=== PATIENT | female | born 2000 | race Caucasian/White ===

== ENCOUNTER 2021-01-27 00:19 | Emergency (ER) | payer OTHER, SELFPAY ==
[2021-01-27 00:20] VITALS: PULSE 75; RESP 18; TEMP 36.4; O2SAT 100; BMI 27.4
--- NOTE | 2021-01-27 00:41 | EX.ED.UPPERE ---
HPI History of Present Illness Chief Complaint: Bite Informant: patient Occured/Mechanism Mechanism/Context: Yes other see comment below Comment: dog bite Onset/Context/Timing Onset: Today (JPTA) Context: Sudden Onset Timing: Continuous Quality of Pain: - (sore) Location: R thumb Current Severity: Mild Maximum Severity: Moderate Worsened by: movement, palpation Relieved by: remaining still Associated Symptoms Associated Symptoms: Negative for Parasthesia, Weakness and Loss of Funtion Narrative Narrative: Patient was watching a friend's dog, dog was going to bed in its crate and has not been ill, was trying to get out, she used her hand to gently guide him back in and may have felt cornered, bit at her, causing injury to her thumb as a result. [id number] patient. Tetanus Immunization: 5-10 years PFSH PFSH no medical history Home Medications amoxicillin-pot clavulanate [Augmentin] 1 tab PO BID #10 tab 01/27/21 [Rx Last Taken Unknown] desogestrel-ethinyl estradiol [Apri] 1 tab PO DAILY 01/27/21 [History Last Taken Unknown] Allergy/AdvReac Type Severity Reaction Status Date / Time No Known Allergies Allergy Verified 01/27/21 00:21 Social History Smoking Status: Never smoker ROS ROS ED Constitutional Constitutional ED: Denies chills or fever(s) Musculoskeletal Musculoskeletal: Reports extremity pain; Denies neck pain Integumentary Reports as per HPI and wounds; Denies rash Neurologic Neurologic: Denies paresthesias or weakness EXAM Physical Exam Const Vital Signs: 01/27/21 00:20 Temperature 97.5 F L Temperature Source Temporal Pulse Rate 75 Respiratory Rate 18 Pulse Ox 100 Positive well nourished and well developed General Appearance ED: well developed and NAD Neck full ROM and supple Back/Spine normal ROM and normal to inspection Extremity Extremity Narrative: Right thumb injury: Tender distal phalanx. Limited range of motion at the IPJ due to pain and swelling but able to flex and extend. No injury proximal to the IPJ or other digits. No subungual hematoma but there is a laceration to the nail itself at the proximal aspect, it does not go all the way into the nailbed or distally through the nail, but it is contiguous with the laceration that is longitudinal along the center of the dorsum of the thumb just proximal to the nail. Neuro oriented x3, no focal motor deficits and no sensory deficits noted Sensorium / Orientation: alert Psych mental status grossly normal and thought process normal Skin Skin Narrative: Partial-thickness clean appearing irregular laceration 3 cm dorsum of the right thumb distal phalanx in the center, from about the IPJ to the nail including the cuticle. It is partial-thickness and the actual root/base of the nail was not visible through the skin, is intact within the cuticle/root, and adherent to the bed without any apparent issue. No active bleeding from the nail injury. Rashes: no rashes MDM MDM MDM Narrative Medical decision making narrative: X-rays on my interpretation 3 views right thumb are negative for any foreign body or fracture/bony involvement. Laceration was repaired after locally anesthetizing, there is a traumatic defect to the nail. There is very minor bleeding from it. I cleaned it up and the bleeding is not active. There does not appear to be a bed injury/laceration. I do not think there will be benefits of removing the nail at this time. As I discussed with the patient, it is possible that she damaged the root/cuticle and if so she may have issues regrowing the nail, however I think it is more likely that the nail will continue to grow normally and she will have a nail defect that will grow out over the next couple of months. After looking at it carefully, I do not think I will benefit her by removing the nail as there does not appear to be a laceration on the bed to repair, and in fact it would increase the chances that the nail would not regrow. I discussed all this with her and she is in agreement with the treatment that we performed. I will have her follow-up with Dr. Woodruff for reevaluation and suture removal. She is put on Augmentin for 5 days, infection prophylaxis, and given the first dose here along with ibuprofen for pain. Procedures Lacerations R thumb: Length: 3 cm Depth: Skin Shape: irreg Prep: Sterile Conditions and Chlorhexadine Laceration repair: Lidocaine (1%, 2cc), Lidocaine with epi (topically) and Local Irrigated (ml): 50 Number of Sutures/[place]: 4 Suture Information: Ethilon, Simple and 5-0 Discharge Plan Triage Chief Complaint: Bite ED Provider: Tamir Willson Dx/Rx/DC Orders Clinical Impression: Laceration of right thumb without foreign body with damage to nail, Dog bite of finger Instructions: ED Dog Bite, ED Laceration, Hand: All Closures Prescriptions: New amoxicillin-pot clavulanate [Augmentin] 875-125 mg tablet 1 tab PO BID Qty: 10 RF: 0 No Action desogestrel-ethinyl estradiol [Apri] 0.15-0.03 mg tablet 1 tab PO DAILY RF: 0 Primary Care Provider: Yaritza Fernando Referrals: Yaritza Fernando MD [Primary Care Provider] - Jet Woodruff MD [STAFF PHYSICIAN] - 10-14 Days suture removal Disposition Disposition: Home, self care
[2021-01-27] MEDS: Lidocaine/Epi/Tetracaine 50 ML 1 APPLIC TOPICAL (00:49)
--- NOTE | 2021-01-27 00:50 | RAD_ITS ---
STUDY: X-RAY - RIGHT HAND, ATTENTION FIRST FINGER REASON FOR EXAM: Female, 20 years old. injury -- thumb TECHNIQUE: 3 view(s) of the finger were obtained. COMPARISON: None. FINDINGS: Normal metacarpal head. Normal metacarpophalangeal joint. Normal proximal phalanx. Normal middle phalanx. Normal distal phalanx. Normal proximal interphalangeal joint. Normal distal interphalangeal joint. Soft tissue injury at the dorsum of the nailbed RAD/Finger(s) Min 2 Views IMPRESSION: No acute osseous findings. Remainder as above Electronically Signed: Colby Patel DO at 1:27 EDT Tel , Service support ,
[2021-01-27] MEDS: Ibuprofen 600 MG Tablet PO (01:46)
[2021-01-27] MEDS: Lidocaine 1% (20 ml mdv) 20 ML Vial INFILT (01:46)
[2021-01-27] MEDS: Amox/Clavulanate 875 MG Tablet PO (01:46)
== END 2021-01-27 01:53 | disposition home or self-care (01) ==
PROVIDERS: Emergency Provider Emergency Medicine; PCP Pediatrics
DX: S61.051A Open bite of right thumb without damage to nail, initial encounter (principal); W54.0XXA Bitten by dog, initial encounter
CPT/HCPCS: 12002; 73140; 99284

== ENCOUNTER 2021-10-03 01:09 | Emergency (ER) | payer OTHER, SELFPAY ==
[2021-10-03 01:10] VITALS: BP 125/67; PULSE 72; RESP 16; TEMP 36.1; O2SAT 99; BMI 28.4
--- NOTE | 2021-10-03 01:23 | CT_ITS ---
STUDY: CT ABDOMEN AND PELVIS WITH CONTRAST REASON FOR EXAM: Female, 21 years old. RLQ pain RADIATION DOSAGE (If Supplied By Facility): CTDIvol = ( 14.67 ) mGy, DLP = ( 616.35 ) mGycm TECHNIQUE: Transaxial images were obtained from the dome of the diaphragm to the symphysis pubis without oral contrast. IV 100mL Isovue-370 was administered. Sagittal and coronal images were reconstructed. Individualized dose optimization techniques were used for this CT. COMPARISON: None. FINDINGS: The visualized lung bases are unremarkable. The visualized portions of the heart are within normal limits. There is a cyst in the right hepatic lobe measuring 6.3 mm. Normal gallbladder and extrahepatic biliary system. Normal spleen. Normal pancreas. Normal bilateral adrenal glands. Normal right kidney. Normal left kidney. Normal visualized stomach. Normal small intestine. There is moderate stool in the colon. The appendix is partially visualized and appears normal without evidence of inflammatory change. Normal abdominal aorta. Normal inferior vena cava. Normal retroperitoneum. Normal urinary bladder. There is a enlarged, cystic appearance of the right ovary. The right ovary may measure up to 5.2 x 3.9 x 4.2 cm. There is a partially collapsed appearing follicle measuring 1.9 x 1.7 cm and a cystic structure measuring 1.9 x 2.2 cm. There is a small amount of adjacent fluid. The left adnexa appears normal. Normal abdominal wall. Normal osseous structures. CT/Abdomen/Pelvis W IV Cont ONLY IMPRESSION: Mild to moderate constipation. Enlarged Cystic-appearing right ovary with adjacent free fluid. The consider follow-up pelvic ultrasound. Partially visualized normal-appearing appendix. No visualized evidence of appendicitis. Benign-appearing right hepatic lobe cyst. Electronically Signed: Selene Verma MD at 2:23 EST ,
--- NOTE | 2021-10-03 01:24 | EDS_ITS ---
HPI HPI - GI History of Present Illness Chief Complaint: Abd Pain Informant: patient Abdominal Pain/Flank Pain Onset: Today (over past 4-5 hrs) Context: Gradual Onset Timing: Continuous Quality: Aching Location: RLQ Current Severity: Severe Maximum Severity: Severe Worsened by: Car ride Relieved by: Nothing Nausea/Vomiting/Emesis GI Symptom: Negative for Nausea and Vomiting Diarrhea/Melena/Hematochezia GI Symptom: Positive for Diarrhea; Negative for Melena and Hematochezia Onset: Today Stool Quality: Positive for Watery; Negative for BRB per rectum Episodes: 1 Associated Symptoms Associated Symptoms: Negative for Dysuria, Frequency, Hematuria and Urgency Narrative Narrative: Patient presenting with mild periumbilical abdominal discomfort that started before she went to bed, she notes that it was after she ate some ice cream and she does have occasional discomfort like that after eating dairy and wheat products. She woke up in the middle of the night with extreme pain in her right lower quadrant. She notes that it did feel a little in her back as well but she did not have it worse in any specific area of her back. She had 1 bout of diarrhea. She denies any nausea, vomiting, fevers. She states it hurt worse in her right lower quadrant when she urinated but she did not have burning dysuria. She has had no urinary symptoms prior to this. Last normal menstrual period was about 3 weeks ago. Denies likely . No prior abdominal surgeries. Prior similar symptoms: No Recent Illness/Hospitalization: No PFSH PFSH Medical History no medical history no medical history Home Medications tramadol 50 mg PO Q4H PRN PRN 2 Days #12 tab 10/03/21 [Rx Last Taken Unknown] Allergy/AdvReac Type Severity Reaction Status Date / Time No Known Allergies Allergy Verified 10/03/21 01:12 Surgical History no surgical history no surgical history Social History Smoking Status: Never smoker ROS ROS ED Constitutional Constitutional ED: Denies chills or fever(s) Eyes Eyes: Denies change in vision or diplopia ENT ENT ED: Denies rhinorrhea or sore throat Cardiovascular Cardiovascular: Denies chest pain or palpitations Respiratory/Chest Respiratory/Chest: Denies cough or dyspnea Gastrointestinal Gastrointestinal: Reports as per HPI, abdominal pain and diarrhea; Denies nausea or vomiting Genitourinary Genitourinary ED: Denies dysuria or hematuria Musculoskeletal Musculoskeletal: Reports back pain; Denies neck pain Integumentary Denies abscess or rash Neurologic Neurologic: Denies headache(s), paresthesias or weakness Psychiatric Psychiatric: Denies anxiety or suicidal thoughts EXAM Physical Exam Const Vital Signs: 10/03/21 01:10 10/03/21 01:43 Temperature 97 F L Temperature Source Temporal Pulse Rate 72 70 Respiratory Rate 16 16 Blood Pressure 125/67 H 114/57 L Blood Pressure Mean 86 76 Pulse Ox 99 100 Oxygen Delivery Method Room Air Room Air Positive well nourished and well developed General Appearance ED: well developed and NAD HEENT Reports moist mucous membranes normocephalic and atraumatic Eyes PERRL and EOMs intact bilaterally Neck full ROM and supple Resp normal respiratory effort and clear to auscultation bilaterally Cardio regular rate, regular rhythm and no murmurs GI non-distended GI Narrative: Tender in right lower quadrant, moderate. This includes McBurney's point, but she is more tender a little distal to this. Positive Rovsing. Negative obturator. Auscultation: normoactive bowel sounds Palpation: soft Back/Spine General Back: CVA tenderness right (Mild. Nontender on the left.) and other FROM Extremity normal to inspection General Extremety ED: Negative for edema, pulses abnormal or tenderness General Extremity: Negative for edema or pulses abnormal Neuro oriented x3, CN's II-XII intact bilaterally and no sensory deficits noted Sensorium / Orientation: awake and alert Motor Exam: strength 5/5 throughout Skin no rashes or lesions noted and no wounds MDM MDM MDM Narrative Medical decision making narrative: Differential here includes appendicitis, kidney stone, kidney infection, ovarian pathology, functional GI etiologies. Patient presents when ultrasound is not available. Labs, urinalysis, all obtained and below. She was sent for CT with IV contrast, which shows a normal-appearing appendix and an enlarged cystic-appearing right ovary with some free fluid. She was treated with Toradol and Reglan along with some IV fluids. On reexamination she is feeling much better. I reexamined her. She is barely tender if at all in the right lower quadrant/pelvis. I think the chances of torsion are low here, we discussed that and I do not think she needs an emergent ultrasound. 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 This is most consistent with a ruptured ovarian cyst, unable to rule out the possibility of a hemorrhagic 1 but there was no jet in the right ovary seen on CT to suggest an actively hemorrhaging cyst and her vital signs are normal and remained so throughout the ED visit. Will prescribe her tramadol to use as needed, also recommend [id number] NSAIDs in addition to this as needed, will write her a work note for tomorrow to use if needed, and her urine showed some indicators of infection that were mild, and without urinary symptoms we will send that for culture only. She is comfortable with all of this and discussed all questions at the bedside. Lab Data Attestation: I reviewed the patient's lab results. Labs: Laboratory Results - last 24 hr 10/03/21 10/03/21 10/03/21 01:23 01:23 01:30 WBC 12.5 H RBC 4.27 Hgb 13.0 Hct 37.7 MCV 88.3 MCH 30.4 MCHC 34.5 RDW Std Deviation 38.0 RDW Coeff of Cookie 11.9 Plt Count 400 MPV 8.5 Immature Gran % (Auto) 0.200 Neut % (Auto) 49.0 Lymph % (Auto) 42.8 H [place] % (Auto) 6.4 Eos % (Auto) 1.0 Baso % (Auto) 0.6 Absolute Neuts (auto) 6.1 Absolute Lymphs (auto) 5.35 H Nucleated RBC % 0 Differential Comment SCANNED Reactive Lymphocytes RARE Sodium 137 Potassium 3.2 L Chloride 106 Carbon Dioxide 23.0 Anion Gap 8 BUN 13 Creatinine 0.80 Estim Creat Clear Calc 86.50 Est GFR (MDRD) Af Amer 113 Est GFR (MDRD) Non-Af 94 BUN/Creatinine Ratio 16.2 Glucose 116 H Calcium 9.0 Urine Color Yellow Urine Clarity Sl. Cloudy Urine pH 6.0 Ur Specific [place] 1.025 Urine Protein 15 H Urine Glucose (UA) Normal Urine Ketones Negative Urine Occult Blood 50 H Urine Nitrite Negative Urine Bilirubin Negative Urine Urobilinogen Normal Ur Leukocyte Esterase 100 H Urine RBC 0-5 SEEN Urine WBC 10-25 SEEN Ur Squamous Epith Cells 5-10 SEEN Urine Bacteria 2+ Urine Mucus 0 SEEN Urine Test Negative Radiography Diagnostic Testing: Clinical Impression(s) from Imaging Studies Abdomen/Pelvis CT 10/03/21 01:23 IMPRESSION: Mild to moderate constipation. Enlarged Cystic-appearing right ovary with adjacent free fluid. The consider follow-up pelvic ultrasound. Partially visualized normal-appearing appendix. No visualized evidence of appendicitis. Benign-appearing right hepatic lobe cyst. Electronically Signed: Selene Verma MD at 2:23 EST , Discharge Plan Triage Chief Complaint: Abd Pain ED Provider: Tamir Willson Dx/Rx/DC Orders Clinical Impression: Rupture of cyst of right ovary Instructions: ED Ovarian Cyst Prescriptions: New tramadol 50 MG tablet 50 mg PO Q4H PRN PRN (Reason: Pain) 2 Days Qty: 12 RF: 0 Stand Alone Forms: ED Work / School Excuse Primary Care Provider: NOT,DEFINED Referrals: Anastacia Bledsoe DO [STAFF PHYSICIAN] - As soon as possible (or associate) NOT,DEFINED [Primary Care Provider] - Disposition Disposition: Home, Self Care
[2021-10-03 01:33] LABS: Absolute Lymphocyte Count 5.35 X10^3/uL (0.83-4.51); Absolute Neutrophil Count 6.1 X10^3/uL (2.0-7.7); Basophil# 0.08 X10^3/uL; Basophil% 0.6 % (0-1); Eosinophil# 0.13 X10^3/uL; Hematocrit 37.7 % (37-47); Lymphocyte # 5.35 X10^3/ul (0.83-4.51); Lymphocyte % 42.8 % (19-41); Mean Corp Hgb Conc 34.5 g/dL (32-36); Mean Corpuscular Hgb 30.4 pg (27.0-32.0); Mean Corpuscular Volume 88.3 fL (81-99); Mean Platelet Vol. 8.5 fl (6.2-12.0); Monocyte% 6.4 % (0-10); NRBC Flagged by Analyzer 0 % (0-5); Neutrophil # 6.12 X10^3/uL (2.7-7.7); POSITIVE DIFFERENTIAL YES; Platelet Count 400 K/mm3 (150-450); RBC Distribution Width CV 11.9 % (11.6-14.6); Red Blood Count 4.27 M/mm3 (4.2-5.4); White Blood Count 12.5 K/mm3 (4.4-11.0)
[2021-10-03 01:34] LABS: Differential Indicated SCAN CRITERIA MET
[2021-10-03 01:38] LABS: Mucous, Urine 0 SEEN /hpf (<or=2+)
[2021-10-03] MEDS: Metoclopramide 10 MG/2 ML Vial 5 MG IV (01:39)
[2021-10-03] MEDS: 0.9% Normal Saline 1,000 ML 125 ML IV (01:39)
[2021-10-03 01:40] LABS: Color, Urine Yellow (Yellow); Glucose, Dipstick Normal (Normal); Ketone-Dipstick Negative (Negative); Leukocyte Esterase-Dipstick 100 /ul (Negative); Nitrite-Dipstick Negative (Negative); Occult Blood-Urine 50 /ul (Negative); Protein-Dipstick 15 mg/dl (Negative); Specific Gravity, Urine 1.025 (1.002-1.030); Urine Bilirubin Dipstick Negative (Negative); Urine Clarity Sl. Cloudy (Clear); Urine Urobilinogen Normal (Normal)
[2021-10-03] MEDS: Ketorolac 30 MG/ML Syringe IV (01:40)
[2021-10-03 01:42] LABS: Internal QC Validated? YES +Cl - CLEAR BKGD; Pregnancy, Urine Negative Negative
[2021-10-03 01:43] VITALS: BP 114/57; PULSE 70; RESP 16; O2SAT 100
[2021-10-03 01:45] LABS: Anion Gap 8 (5-15); BUN 13 mg/dL (7-18); BUN/Creat Ratio 16.2 RATIO (10-20); Chloride 106 mmol/L (98-107); EST Glomerular Filtration Rate 94 mL/min (>60); Est Glom Filt Rate - Afr Amer 113 mL/min (>60); Glucose 116 mg/dL (74-106); Potassium 3.2 mmol/L (3.5-5.1); Sodium Level 137 mmol/L (136-145)
[2021-10-03 01:46] LABS: Red Blood Cells-Urine 0-5 SEEN /hpf (0-5); Squamous Epithelial Cells - UA 5-10 SEEN /hpf (5-10); White Blood Cells 10-25 SEEN /hpf (0-5)
[2021-10-03 01:47] LABS: Bacteria 2+ /hpf (None Seen)
[2021-10-03 02:09] LABS: Differential Comment SCANNED; Reactive Lymphocyte RARE
[2021-10-03 02:57] VITALS: BP 115/66; PULSE 82; RESP 16; O2SAT 100
--- NOTE | 2021-10-03 03:35 | US_ITS ---
STUDY: ULTRASOUND TRANSVAGINAL CLINICAL: Female, 21 years old. Right pelvic pain TECHNIQUE: Transvaginal COMPARISON: CT scan abdomen and pelvis October 03, 2021 at 1:58 AM FINDINGS: Normal uterine size measuring 6.6 x 3.9 x 2.5 cm in maximal craniocaudal dimension. There are no myometrial masses. Normal endometrial thickness measuring 9 mm. There are no endometrial masses, and there is no fluid in the endometrial cavity. Normal uterine cervix. Normal right ovary, measuring 5.9 x 4.3 x 3.9 cm. There is an enlarged appearance of the right ovary containing a hypoechoic structure, measuring 2.5 x 2.1 cm. Multiple small follicles in the right ovary. There is an additional 2.5 x 2.1 cm hypoechoic nodule. Normal left ovary, measuring 3.0 x 2.2 x 1.9 cm. There are small left ovarian follicles measuring up to 1.2 x 1.0 x 0.9 cm. There is a moderate amount of free fluid within the pelvis. Polycystic ovary disease: No. US/Transvaginal Non- IMPRESSION: Asymmetrically enlarged right ovary with Avascular hypoechoic masses in the right ovary suggesting hemorrhagic cysts. There is good color flow to the bilateral ovaries. There is no visualized torsion. Moderate to large free fluid within the pelvis greater than the CT abdomen and pelvis at 1:58 AM. Electronically Signed: Selene Verma MD at 5:39 EST ,
[2021-10-03] MEDS: Morphine 4 MG/ML Syringe IM (03:42)
[2021-10-03] MEDS: Morphine 4 MG/ML Syringe IV (04:17)
[2021-10-03 04:30] VITALS: BP 100/52; PULSE 62; RESP 16; O2SAT 100
== END 2021-10-03 06:00 | disposition home or self-care (01) ==
PROVIDERS: Emergency Provider Emergency Medicine; Visit Provider Emergency Medicine
DX: N83.201 Unspecified ovarian cyst, right side (principal)
CPT/HCPCS: 74177; 76830; 80048; 81001; 81025; 85025; 87086; 87088; 93976; 96372; 96374; 96375; 99285; J7030; Q9967; A4216